=== PATIENT | female | born 1975 ===

== ENCOUNTER 2021-10-18 21:55 | Emergency (ER) | payer SELFPAY ==
[2021-10-19 03:03] VITALS: BP 110/63
--- NOTE | 2021-10-19 06:30 | XRay Report ---
CHEST 2 VIEWS INDICATION / CLINICAL INFORMATION: fever cough. COMPARISON: None available. FINDINGS: SUPPORT DEVICES: None. HEART / MEDIASTINUM: No significant abnormality. LUNGS / PLEURA: No significant pulmonary or pleural abnormality. No pneumothorax. ADDITIONAL FINDINGS: No significant additional findings. IMPRESSION: 1. No acute findings. Signer Name: Wally Dc MD Signed: 10/19/2021 6:26 AM Workstation Name: [id number]
[2021-10-19] MEDS ORDERED: ACETAMINOPHEN 500 MG TAB PO ONE (06:32)
--- NOTE | 2021-10-19 06:33 | Emergency Department Report ---
ED General Adult HPI - General Chief complaint: Fever Stated complaint: PAIN/FEVER PUI?: Yes Time Seen by Provider: 10/19/21 06:17 Source: patient, RN notes reviewed Mode of arrival: Ambulatory Limitations: Language Barrier - History of Present Illness Initial comments: The patient was evaluated in the emergency department for symptoms described in the history of present illness. He/she was evaluated in the context of the global COVID-19 pandemic, which necessitated consideration that the patient might be at risk for infection with the virus that causes COVID-19. Institutional protocols and algorithms that pertain to the evaluation of patients at risk for COVID-19 are in a state of rapid change based on information released by regulatory bodies including the CDC and federal and state organizations. These policies and algorithms were followed during the patient's care in the emergency department. Please note that these policies, procedures and recommendations changed on a rapid basis. The patient is a 45-year-old female who reports that she is COVID-19 vaccinated, presenting to the ER with a few days of body aches, malaise and fatigue. No headache, neck pain, chest pain, abdominal pain, denies vomiting, shortness of breath, but does endorse nonspecific urinary symptoms. She is not sure if she is . -: Gradual, days(s) Location: back, left, right, upper extremity, lower extremity Severity scale (0 -10): 5 Quality: aching Improves with: medication, rest Worsens with: movement - Related Data Previous Rx's Medication Instructions Recorded Last Taken Type Acetaminophen [Non-Aspirin Extra 500 mg PO Q6HR PRN #30 tablet 10/19/21 Unknown Rx Strength] Zohreh Root [Zohreh] 250 mg PO QID PRN #30 capsule 10/19/21 Unknown Rx Ibuprofen [Motrin] 600 mg PO Q8H PRN #30 tablet 10/19/21 Unknown Rx Metoclopramide [Reglan] 10 mg PO QID PRN #30 tablet 10/19/21 Unknown Rx levoFLOXacin [Levaquin] 750 mg PO QDAY #10 tablet 10/19/21 Unknown Rx Allergies Allergy/AdvReac Type Severity Reaction Status Date / Time No Known Allergies Allergy Unverified 10/19/21 02:55 ED Review of Systems ROS: Stated complaint: PAIN/FEVER Other details as noted in HPI Constitutional: fever Eyes: denies: eye discharge ENT: denies: epistaxis Respiratory: denies: wheezing Cardiovascular: denies: chest pain Gastrointestinal: denies: abdominal pain, nausea, vomiting, hematemesis, melena, hematochezia Genitourinary: as per HPI, urgency, dysuria Musculoskeletal: arthralgia, myalgia Neurological: denies: weakness ED Past Medical Hx - Past Medical History Previous Medical History?: Yes Hx Diabetes: Yes Additional medical history: UTIs - Medications Home Medications: Home Medications Medication Instructions Recorded Confirmed Last Taken Type Acetaminophen [Non-Aspirin Extra 500 mg PO Q6HR PRN #30 tablet 10/19/21 Unknown Rx Strength] Zohreh Root [Zohreh] 250 mg PO QID PRN #30 capsule 10/19/21 Unknown Rx Ibuprofen [Motrin] 600 mg PO Q8H PRN #30 tablet 10/19/21 Unknown Rx Metoclopramide [Reglan] 10 mg PO QID PRN #30 tablet 10/19/21 Unknown Rx levoFLOXacin [Levaquin] 750 mg PO QDAY #10 tablet 10/19/21 Unknown Rx ED Physical Exam - General Limitations: Language Barrier General appearance: alert, in no apparent distress - Head Head exam: Present: atraumatic, normocephalic - Eye Eye exam: Present: normal appearance, EOMI. Absent: nystagmus - ENT ENT exam: Present: normal exam, normal orophraynx, mucous membranes moist, normal external ear exam - Neck Neck exam: Present: normal inspection, full ROM. Absent: tenderness, meningismus - Respiratory Respiratory exam: Present: normal lung sounds bilaterally. Absent: respiratory distress, wheezes, rales, rhonchi, stridor, decreased breath sounds - Cardiovascular Cardiovascular Exam: Present: normal rhythm, tachycardia, normal heart sounds. Absent: bradycardia, irregular rhythm, systolic murmur, diastolic murmur, rubs, gallop - GI/Abdominal GI/Abdominal exam: Present: soft, normal bowel sounds. Absent: distended, tenderness, guarding, rebound, rigid, pulsatile mass - Extremities Exam Extremities exam: Present: normal inspection, full ROM, other (2+ pulses noted in the bilateral upper and lower extremities. There is no palpable cord. negative Homans sign. Muscular compartments are soft. The pelvis is stable.). Absent: pedal edema, calf tenderness - Back Exam Back exam: Present: normal inspection, full ROM. Absent: tenderness, CVA tenderness (R), CVA tenderness (L), paraspinal tenderness, vertebral tenderness - Neurological Exam Neurological exam: Present: alert, oriented X3, normal gait, other (No facial droop. Tongue midline. Extraocular movements intact bilaterally. Facial sensation intact to light touch in V1, V2, V3 distribution bilaterally. 5 and a 5 strength in 4 extremities. Sensation intact to light touch in 4 extremities.). Absent: motor sensory deficit - Psychiatric Psychiatric exam: Present: normal affect, normal mood - Skin Skin exam: Present: warm, dry, intact, normal color. Absent: rash ED Course Vital Signs 10/19/21 10/19/21 03:02 06:38 Temperature 98.9 F Pulse Rate 108 H Respiratory 20 14 Rate Blood Pressure 110/63 [Right] O2 Sat by Pulse 97 Oximetry ED Medical Decision Making - Lab Data Vital Signs 10/19/21 10/19/21 03:02 06:38 Temperature 98.9 F Pulse Rate 108 H Respiratory 20 14 Rate Blood Pressure 110/63 [Right] O2 Sat by Pulse 97 Oximetry Lab Results 10/19/21 Range/Units Unknown Urine Color Straw (Yellow) Urine Turbidity Slightly-cloudy (Clear) Urine pH 5.0 (5.0-7.0) Ur Specific [place] 1.029 (1.003-1.030) Urine Protein 30 mg/dl (Negative) mg/dL Urine Glucose (UA) >=500 (Negative) mg/dL Urine Ketones 80 (Negative) mg/dL Urine Blood Neg (Negative) Urine Nitrite Neg (Negative) Urine Bilirubin Neg (Negative) Urine Urobilinogen < 2.0 (<2.0) mg/dL Ur Leukocyte Esterase Sm (Negative) Urine WBC (Auto) 47.0 H (0.0-6.0) /HPF Urine RBC (Auto) 5.0 (0.0-6.0) /HPF U Epithel Cells (Auto) 1.0 (0-13.0) /HPF Urine Mucus Few /HPF Urine HCG, Qual Negative (Negative) - Radiology Data Radiology results: report reviewed, image reviewed CHEST 2 VIEWS INDICATION / CLINICAL INFORMATION: fever cough. COMPARISON: None available. FINDINGS: SUPPORT DEVICES: None. HEART / MEDIASTINUM: No significant abnormality. LUNGS / PLEURA: No significant pulmonary or pleural abnormality. No pneumothorax. ADDITIONAL FINDINGS: No significant additional findings. IMPRESSION: 1. No acute findings. Signer Name: Wally Dc MD Signed: 10/19/2021 5:26 AM Workstation Name: [id number] - Medical Decision Making Differential diagnosis, including but not limited to: Pneumonia, influenza, viral syndrome, COVID-19, urinary tract infection Assessment and plan: 45-year-old female who reports that she is COVID-19 vaccinated, presenting with a few days of myalgias, muscle aches, dysuria. She has no CVA tenderness. She is afebrile at this time. Her physical examination is unremarkable with exception of minimal tachycardia which is improved after initial therapies. Her chest x-ray is unremarkable, she is not hypoxic, she has no CVA tenderness, urinalysis demonstrates pyuria, and she is found to be not . The patient did endorse irritative urinary symptoms. Tylenol, Motrin, ceftriaxone, discharged with antibiotics, outpatient follow-up. Patient accompanied by Israeli-speaking associate professor of english, and this provider is conversant in [place] as well as being fluent in Israeli. Discussed this with the patient. She articulated understanding. Return precautions reviewed Even if this patient is has COVID-19, she is not hypoxic and has clear lungs and a clear chest x-ray. Supportive care, at this time, no other intervention is indicated at this time. If this patient has influenza, she is not hypoxic, she is not nauseous or vomiting, symptoms present for least 48 to 72 hours. Given young age and lack of medical comorbidities, would not initiate Tamiflu. Cannot be tested as an outpatient, but supportive care for influenza-like illness. Critical care attestation.: If time is entered above; I have spent that time in minutes in the direct care of this critically ill patient, excluding procedure time. ED Disposition Clinical Impression: Pyuria, History of fever, test negative Disposition: HOME / SELF CARE / HOMELESS Is pt being admited?: No Does the pt Need Aspirin: No Condition: Good Instructions: Urinary Tract Infection, Adult, [id number] Additional Instructions: Please take the pain medication, nausea medications as needed and directed. Take the antibiotics as directed. Do not consume alcohol. Cultures were sent today, and results will be available in the next 3 to 5 days. Please have your primary care doctor contact the medical records department to obtain culture results. Recommend outpatient Covid swab. Please return to the emergency room right away with new pain, worsened pain, rohit ration of pain, projectile vomiting, change in mental status, confusion, inability tolerate liquid feeds, new, worsened or different symptoms not present on the initial emergency room evaluation Recommend follow-up with her primary care doctor within 3 to 5 days for repeat checkup and evaluation [place] los medicamentos para el dolor y las nuseas segn sea necesario y se lo indiquen. [place] los antibiticos segn las indicaciones. No consuma alcohol. Los cultivos se enviaron hoy y los resultados estarn disponibles en los prximos 3 a 5 marr. [place] a escalera mdico de atencin primaria que se comunique con el departamento de registros mdicos para obtener los resultados del cultivo. Recomendar hisopo Covid para pacientes ambulatorios. Regrese a la reji de emergencias de inmediato con dolor nuevo, empeoramiento del dolor, migracin del dolor, vmitos proyectiles, cambio en el estado mental, confusin, incapacidad para tolerar alimentos lquidos, sntomas nuevos, empeorados o diferentes que no estaban presentes en la evaluacin inicial de la reji de emergencias. Recomendar seguimiento con escalera mdico de atencin primaria dentro de 3 a 5 marr para repetir el control y la evaluacin Prescriptions: Zohreh Root [Zohreh] 250 mg PO QID PRN #30 capsule PRN Reason: Nausea levoFLOXacin [Levaquin] 750 mg PO QDAY #10 tablet Ibuprofen [Motrin] 600 mg PO Q8H PRN #30 tablet PRN Reason: Pain Acetaminophen [Non-Aspirin Extra Strength] 500 mg PO Q6HR PRN #30 tablet PRN Reason: Pain , Severe (7-10) Metoclopramide [Reglan] 10 mg PO QID PRN #30 tablet PRN Reason: Nausea Referrals: PRIMARY CARE,MD [Primary Care Provider] - 3-5 Days [facility] [Provider Group] - 3-5 Days [facility] [Provider Group] - 3-5 Days Forms: Work/School Release Form(ED) Print Language: ESTONIAN
[2021-10-19 07:03] LABS: Bilirubin,Urine NEG (Negative); Blood,Urine NEG (Negative); Color,Urine Straw (Yellow); Mucus,Urine FEW /HPF; Urobilinogen,Urine < 2.0 mg/dL (<2.0)
[2021-10-19 07:05] LABS: HCG Qualitative,Urine Negative (Negative)
[2021-10-19] MEDS ORDERED: LIDOCAINE-MPF (1%) 10 MG/1 ML VIAL 5 ML INFILTRATI ONE (08:05)
[2021-10-19] MEDS ORDERED: IBUPROFEN 600 MG TAB PO ONE (08:05)
== END 2021-10-19 09:05 | disposition home or self-care (01) ==
LOC: ED 21:55
DX: R82.81 Pyuria (principal); M79.18 Myalgia, other site; R53.83 Other fatigue; E11.9 Type 2 diabetes mellitus without complications
CPT/HCPCS: 71046; 81001; 81025; 87086; 96372; 99283; J0696; J3490